=== PATIENT | female | born 1950 | race Caucasian/White ===

== ENCOUNTER 2017-01-06 11:36 | Observation (INO) | payer OTHER ==
[2017-01-06] VITALS (8 sets, daily range): BP systolic 88–176; BP diastolic 50–85; PULSE 84–91; RESP 14–20; TEMP 97.6–98.5; O2SAT 85–99
[~2017-01-06] VITALS: Ht 157.5 cm; Wt 82.0 kg
[2017-01-06] MEDS ORDERED: SODIUM CHLOR 0.9% 1000 ML INJ 1,000 ML IV SCH ×2 (12:15)
[2017-01-06 12:22] LABS: AUTOMATED NEUTROPHIL # 6.1 TH/MM3 (1.8-7.7); BASOPHIL % 0.3 % (0.0-2.0); EOSINOPHIL # 0.1 TH/MM3 (0-0.4); EOSINOPHIL % 1.5 % (0.0-4.0); HEMATOCRIT 36.9 % (35.0-46.0); LYMPH % 23.4 % (9.0-44.0); LYMPHOCYTE # 2.1 TH/MM3 (1.0-4.8); MEAN CELL VOLUME 84.3 FL (80.0-100.0); MEAN CORPUSCULAR HEMOGLOBIN 27.4 PG (27.0-34.0); MEAN CORPUSCULAR HGB CONC 32.5 % (32.0-36.0); MONO % 7.2 % (0.0-8.0); NEUT % 67.6 % (16.0-70.0); PLATELET COUNT 179 TH/MM3 (150-450); RED BLOOD COUNT 4.38 MIL/MM3 (4.00-5.30); RED CELL DISTRIBUTION WIDTH 14.9 % (11.6-17.2)
[2017-01-06 12:28] LABS: HEMO FLAGS AUTO DIFF
--- NOTE | 2017-01-06 12:29 | PD ---
HPI Chief Complaint: Syncope/Near-Syncope Time Seen by Provider: 12:26 Travel History International Travel<30 days: No Contact w/Intl Traveler<30days: No Traveled to known affect area: No History of Present Illness HPI 66-year-old female that presents to the ED via E back for evaluation of presyncope. Patient apparently had almost syncopal episode today. Per patient and ambulance report patient was at a [employer] market and she felt like she was lightheaded and about 2 faint and she was put on a chair before she fell. Patient does state that she's been having some abdominal cramping and diarrhea. Patient is somewhat of a poor historian and unclear if she is newly altered she does appear to have some underlying psychiatric illness per ambulance report. Patient is not really good historian at this time. Patient does complain of abdominal discomfort. She was found to be hypotensive by ambulance and was given fluids. She states that her pain is 4 out of 10. She states that she has no blood in her stool. Per patient she does not have diarrhea. She denies any chest pain or shortness of breath. No head injury. Denies taking any blood thinners. Again history somewhat limited. PFSH Past Medical History Anxiety: Yes (PTSD) Depression: Yes Hypertension: Yes Medical other: Yes (NEURALGIA) Thyroid Disease: Yes Influenza Vaccination: No ?: Unknown Past Surgical History Hysterectomy: Yes Other Surgery: Yes (NECK SURGERY) Social History Alcohol Use: No Tobacco Use: No Substance Use: No Allergies-Medications (Allergen,Severity, Reaction): Coded Allergies: No Known Allergies (Unverified , 01/06/17) Reported Meds & Prescriptions Reported Meds & Active Scripts Active Reported Allopurinol 300 Mg Tab 300 Mg PO DAILY Singulair (Montelukast Sodium) 10 Mg Tab 10 Mg PO DAILY Zoloft (Sertraline HCl) 100 Mg Tab 150 Mg PO DAILY Hyzaar (Losartan-Hydrochlorothiazide) 50-12.5 Mg Tab 1 Tab PO DAILY Gabapentin 300 Mg Cap 300 Mg PO BID Levothyroxine (Levothyroxine Sodium) 150 Mcg Tab 150 Mcg PO DAILY Review of Systems ROS Limitations: Altered Mental Status, Poor Historian Except as stated in HPI: all other systems reviewed are Neg Physical Exam Exam Limitations: Altered Mental Status, Poor Historian Narrative GENERAL: SKIN: Warm and dry. HEAD: Atraumatic. Normocephalic. EYES: Pupils equal and round 4 mm reactive to light and accommodation. No scleral icterus. No injection or drainage. ENT: No nasal bleeding or discharge. Mucous membranes pink and moist. Tongue is midline. No uvula deviation. NECK: Trachea midline. No JVD. CARDIOVASCULAR: Regular rate and rhythm. No murmurs, S3, S4. RESPIRATORY: No accessory muscle use. Clear to auscultation. Breath sounds equal bilaterally. GASTROINTESTINAL: Abdomen soft, non-tender, nondistended. Hepatic and splenic margins not palpable. Rectal exam done with female nurse present. Patient has no blood or hemorrhoids noted. Hemoccult was done and negative. MUSCULOSKELETAL: Extremities without clubbing, cyanosis, or edema. No obvious deformities. Full range of motion of the upper and lower extremities bilaterally. 2+ pulses bilaterally. NEUROLOGICAL: Awake and alert. No obvious cranial nerve deficits. Motor grossly within normal limits. Five out of 5 muscle strength in the arms and legs. Normal speech. PSYCHIATRIC: Appropriate mood and affect; insight and judgment normal. Data Data Last Documented VS Vital Signs Date Time Temp Pulse Resp B/P Pulse Ox O2 Delivery O2 Flow Rate FiO2 01/06/17 13:29 84 16 103/57 85 16 108/66 89 16 108/66 117/69 01/06/17 13:13 97 Room Air 01/06/17 12:33 2 01/06/17 11:52 97.6 Orders Complete Blood Count With Diff (01/06/17 11:52) Comprehensive Metabolic Panel (01/06/17 11:52) Lipase (01/06/17 11:52) Lactic Acid (01/06/17 11:52) Prothrombin Time / Inr (Pt) (01/06/17 11:52) Act Partial Throm Time (Ptt) (01/06/17 11:52) Urinalysis - C+S If Indicated (01/06/17 11:52) Ct Abd/Pel W Iv Contrast(Rout) (01/06/17 11:52) Iv Access Insert/Monitor (01/06/17 11:52) Ecg Monitoring (01/06/17 11:52) Oximetry (01/06/17 11:52) Electrocardiogram (01/06/17 11:52) Ckmb (Isoenzyme) Profile (01/06/17 11:52) Troponin I (01/06/17 11:52) Magnesium (Mg) (01/06/17 11:52) Thyroid Stimulating Hormone (01/06/17 11:52) Chest, Single Ap (01/06/17 11:52) Ct Brain W/O Iv Contrast(Rout) (01/06/17 11:52) Sodium Chlor 0.9% 1000 Ml Inj (Ns 1000 M (01/06/17 12:15) Sodium Chlor 0.9% 1000 Ml Inj (Ns 1000 M (01/06/17 12:15) Orthostatic Vital Signs (01/06/17 13:11) Iohexol 350 Inj (Omnipaque 350 Inj) (01/06/17 14:13) Blood Culture (01/06/17 14:47) Lactic Acid (01/06/17 14:48) Admit Order (Ed Use Only) (01/06/17 15:16) Place In Observation (01/06/17 ) Vital Signs (Adult) Q4H (01/06/17 15:16) Activity Oob With Assistance (01/06/17 15:16) Bedside Glucose CHAN.AC&HS (01/06/17 15:16) Causticiser / Telemetry .CONTINUOUS (01/06/17 15:16) Intake + Output CHAN.QSHIFT (01/06/17 15:16) Diet Regular Basic (01/06/17 Dinner) Sodium Chlor 0.9% 1000 Ml Inj (Ns 1000 M (01/06/17 15:16) Sodium Chloride 0.9% Flush (Ns Flush) (01/06/17 15:30) Sodium Chloride 0.9% Flush (Ns Flush) (01/06/17 21:00) Acetaminophen (Tylenol) (01/06/17 15:30) Ondansetron Inj (Zofran Inj) (01/06/17 15:30) Temazepam (Restoril) (01/06/17 15:30) Basic Metabolic Panel (Bmp) (01/07/17 06:00) Complete Blood Count With Diff (01/07/17 06:00) Resp Oxygen Rowdy C Titrat 1-4 L (01/06/17 ) Pt Request For Service (01/06/17 15:16) Case Management Consult (01/06/17 15:16) Enoxaparin Inj (Lovenox Inj) (01/06/17 16:00) Scd Bilateral/Knee High CHAN.BID (01/06/17 15:16) Vincenzo Bilateral/Knee High CHAN.QSHIFT (01/06/17 15:16) Free Thyroxine (T4) (01/06/17 15:18) Labs Laboratory Tests Test 01/06/17 01/06/17 01/06/17 01/06/17 12:01 13:12 13:17 14:31 White Blood Count 9.0 TH/MM3 Red Blood Count 4.38 MIL/MM3 Hemoglobin 12.0 GM/DL Hematocrit 36.9 % Mean Corpuscular Volume 84.3 FL Mean Corpuscular Hemoglobin 27.4 PG Mean Corpuscular Hemoglobin 32.5 % Concent Red Cell Distribution Width 14.9 % Platelet Count 179 TH/MM3 Mean Platelet Volume 8.3 FL Neutrophils (%) (Auto) 67.6 % Lymphocytes (%) (Auto) 23.4 % Monocytes (%) (Auto) 7.2 % Eosinophils (%) (Auto) 1.5 % Basophils (%) (Auto) 0.3 % Neutrophils # (Auto) 6.1 TH/MM3 Lymphocytes # (Auto) 2.1 TH/MM3 Monocytes # (Auto) 0.6 TH/MM3 Eosinophils # (Auto) 0.1 TH/MM3 Basophils # (Auto) 0.0 TH/MM3 CBC Comment AUTO DIFF Differential Total Cells 100 Counted Neutrophils % (Manual) 60 % Band Neutrophils % 2 % Lymphocytes % 26 % Monocytes % 7 % Eosinophils % 2 % Neutrophils # (Manual) 5.9 TH/MM3 Metamyelocytes 1 % Myelocytes 2 % Differential Comment FINAL DIFF MANUAL Platelet Estimate NORMAL Platelet Morphology Comment NORMAL Red Cell Morphology Comment NORMAL Sodium Level 145 MEQ/L Potassium Level 3.3 MEQ/L Chloride Level 111 MEQ/L Carbon Dioxide Level 26.8 MEQ/L Anion Gap 7 MEQ/L Blood Urea Nitrogen 25 MG/DL Creatinine 0.91 MG/DL Estimat Glomerular Filtration 62 ML/MIN Rate Random Glucose 147 MG/DL Lactic Acid Level 2.5 mmol/L 2.3 mmol/L Calcium Level 8.2 MG/DL Magnesium Level 1.8 MG/DL Total Bilirubin 0.2 MG/DL Aspartate Amino Transf 13 U/L (AST/SGOT) Alanine Aminotransferase 21 U/L (ALT/SGPT) Alkaline Phosphatase 71 U/L Total Creatine Kinase 56 U/L Troponin I LESS THAN 0.02 NG/ML Total Protein 5.9 GM/DL Albumin 3.4 GM/DL Lipase 157 U/L Free Thyroxine 0.83 NG/DL Thyroid Stimulating Hormone 5.990 uIU/ML 3rd Gen Urine Color YELLOW Urine Turbidity HAZY Urine pH 5.5 Urine Specific [place] 1.024 Urine Protein 30 mg/dL Urine Glucose (UA) NEG mg/dL Urine Ketones NEG mg/dL Urine Occult Blood NEG Urine Nitrite NEG Urine Bilirubin NEG Urine Urobilinogen 2.0 MG/DL Urine Leukocyte Esterase NEG Urine RBC 1 /hpf Urine WBC 2 /hpf Urine Squamous Epithelial 11 /hpf Cells Urine Hyaline Casts 50 /lpf Urine Mucus FEW /lpf Microscopic Urinalysis Comment CULT NOT INDICATED Prothrombin Time 10.6 SEC Prothromb Time International 1.0 RATIO Ratio Activated Partial 19.9 SEC Thromboplast Time MDM Medical Decision Making Medical Screen Exam Complete: Yes Emergency Medical Condition: Yes Medical Record Reviewed: Yes Interpretation(s) EKG shows sinus rhythm with no sign of acute ischemia or arrhythmia read by me and attending. CBC & BMP Diagram 01/06/17 12:01 LFTS and lipase WNL Last Impressions Head CT 01/06/17 1152 Signed Impressions: Service Date/Time: Friday, January 06, 2017 13:50 - CONCLUSION: Unremarkable study except for left sphenoid sinusitis. Yaneth Gonzalez MD Chest X-Ray 01/06/17 1152 Signed Impressions: Service Date/Time: Friday, January 06, 2017 11:53 - CONCLUSION: There is prominence of the perivascular markings with crowding of the bronchovascular markings may be due to expiratory state of this radiograph, however slight interstitial process is not excluded. Yaneth Gonzalez MD CT abdomen showed diverticulum but no other disease EKG shows sinus rhythm with no sign of acute ischemia or arrhythmia read by me and attending. Troponin and CK-MB negative. Differential Diagnosis Hypotension versus orthostatic hypotension versus altered mental status versus diarrhea versus acute abdomen versus syncope versus presyncope Narrative Course 66-year-old female that presents to the ED for evaluation of possible syncopal episode. Patient was properly examined and was found to have signs and symptoms consistent with appears to be possible syncope and altered mental status. This time a recommendation is for labs and imaging. Cardiac workup done as well. Patient was given IV fluids here. Labs and imaging showed some fluid in the lungs but otherwise unremarkable. Patient did have orthostatics and she still was Symptomatic with lightheadedness and presyncopal symptoms but no drop in BP. At this time my attending Dr. Odom evaluated the patient with me and agrees with admission for altered mental status, syncope, hypotension. EMILIANO barker and Dr Barnes agrees to admission. Diagnosis Primary Impression: Altered mental status Qualified Code: R41.82 - Altered mental status, unspecified altered mental status type Additional Impressions: Hypotension Qualified Code: I95.9 - Hypotension, unspecified hypotension type Postural dizziness with presyncope Admitting Information Admitting Physician Requests: Prieto Dela Cruz Jan 06, 2017 12:29
[2017-01-06] MEDS ORDERED: ALLO300T2 PO (12:32)
[2017-01-06] MEDS ORDERED: HYZA50TA2 PO (12:32)
[2017-01-06] MEDS ORDERED: MONT10TA2 PO (12:32)
[2017-01-06] MEDS ORDERED: LEVO150T7 PO (12:32)
[2017-01-06] MEDS ORDERED: ZOLO100T PO (12:32)
[2017-01-06] MEDS ORDERED: GABA300C5 PO (12:32)
--- NOTE | 2017-01-06 12:44 | RADRPT ---
EXAM DATE/TIME: 01/06/2017 11:53 [facility] COMPARISON: No previous studies available for comparison. INDICATIONS : Syncope. MEDICAL HISTORY : Chronic obstructive pulmonary disease. Asthma SURGICAL HISTORY : None. ENCOUNTER: Initial ACUITY: 1 day PAIN SCORE: 0/10 LOCATION: Bilateral chest FINDINGS: There is prominence of the perivascular markings with crowding of the bronchovascular markings may be due to expiratory state of this radiograph, however slight interstitial process is not excluded. Foc al consolidation is not seen. Prominence of the mediastinal shadow may be technical. CONCLUSION: There is prominence of the perivascular markings with crowding of the bronchovascular markings may be due to expiratory state of this radiograph, however slight interstitial process is not excluded. Yaneth Gonzalez MD on January 06, 2017 at 12:42 Board Certified Radiologist. This report was verified electronically.
[2017-01-06 12:49] LABS: ALT (GPT) 21 U/L (10-53); ANION GAP 7 MEQ/L (5-15); AST (GOT) 13 U/L (15-37); BICARBONATE 26.8 MEQ/L (21.0-32.0); BLOOD UREA NITROGEN 25 MG/DL (7-18); CHLORIDE 111 MEQ/L (98-107); GLOMERULAR FILTRATION RATE 62 ML/MIN (>89); MAGNESIUM 1.8 MG/DL (1.5-2.5); POTASSIUM 3.3 MEQ/L (3.5-5.1); SODIUM (NA) 145 MEQ/L (136-145)
[2017-01-06 12:58] LABS: ALKALINE PHOSPHATASE 71 U/L (45-117); TOTAL BILIRUBIN ADULT 0.2 MG/DL (0.2-1.0)
[2017-01-06 13:06] LABS: BANDS 2 % (0-6); EOSINOPHILS 2 % (0-4); METAMYELOCYTES 1 % (0-1); MYELOCYTES 2 % (0-0); NEUTROPHIL # MANUAL DIFF 5.9 TH/MM3 (1.8-7.7); PLATELET ESTIMATE SMEAR NORMAL (NORMAL); PLATELET MORPHOLOGY NORMAL (NORMAL); POLYS (SEG NEUTROPHILS) 60 % (16-70); SCAN/DIFF FINAL DIFF MANUAL; WBC DIFF SAMPLE 100
[2017-01-06 13:15] LABS: CREATINE KINASE 56 U/L (26-192)
[2017-01-06 13:38] LABS: BLOOD, URINE NEG (NEG); COMMENT (UR) CULT NOT INDICATED; CULTURE IF INDICATED CULT NOT INDICATED; GLUCOSE,URINE NEG (NEG); HYALINE CAST, URINE 50 /lpf (RARE); KETONE, URINE NEG (NEG); MUCUS URINE FEW /lpf (OCC); NITRITE,URINE NEG (NEG); PH, URINE 5.5 (5.0-8.5); SQUAMOUS EPITHELIAL CELL URINE 11 /hpf (0-5); URINE COLOR YELLOW (YELLW/STRAW)
[2017-01-06 13:49] LABS: APTT (PATIENT) 19.9 SEC (24.3-30.1); PROTHROMBIN TIME - PATIENT 10.6 SEC (9.8-11.6)
[2017-01-06] MEDS ORDERED: IOHEXOL 350 MG/ML 10 ML VIAL (for RAD DIAG) IV ONE (14:13)
--- NOTE | 2017-01-06 14:13 | RADRPT ---
EXAM DATE/TIME: 01/06/2017 13:50 [facility] COMPARISON: No previous studies available for comparison. INDICATIONS : Syncope RADIATION DOSE: 56.35 CTDIvol (mGy) MEDICAL HISTORY : Hypertension. SURGICAL HISTORY : Hysterectomy. ENCOUNTER: Initial ACUITY: 1 day PAIN SCALE: 4/10 LOCATION: cranial TECHNIQUE: Multiple contiguous axial images were obtained of the head. Using automated exposure control and adj ustment of the mA and/or kV according to patient size, radiation dose was kept as low as reasonably a chievable to obtain optimal diagnostic quality images. FINDINGS: There is no evidence for intracranial hemorrhage, mass effect, mass lesions, edema, or extra-axial fl uid collections. The visualized bony structures appear intact. The ventricles are normal size for t he patient's age. There are no signs of acute infarction for technique. There is complete opacificat ion of the left sphenoid sinus. CONCLUSION: Unremarkable study except for left sphenoid sinusitis. Yaneth Gonzalez MD on January 06, 2017 at 14:10 Board Certified Radiologist. This report was verified electronically.
--- NOTE | 2017-01-06 14:34 | RADRPT ---
EXAM DATE/TIME: 01/06/2017 13:47 [facility] COMPARISON: No previous studies available for comparison. INDICATIONS : Abdominal pain along with diarrhea. IV CONTRAST: 75 cc Omnipaque 350 (iohexol) IV ORAL CONTRAST: No oral contrast ingested. RADIATION DOSE: 11.29 CTDIvol (mGy) MEDICAL HISTORY : Hypertension. SURGICAL HISTORY : Hysterectomy. ENCOUNTER: Initial ACUITY: 1 day PAIN SCALE: 3/10 LOCATION: Abdomen TECHNIQUE: Volumetric scanning of the abdomen and pelvis was performed. Using automated exposure control and adjustment of the mA and/or kV according to patient size, radiation dose was kept as low as reasonably achievable to obtain optimal diagnostic quality images. FINDINGS: CT Abdomen: The liver, spleen, pancreas, kidneys, adrenals are unremarkable. There is no evidence for any appreciable pathological adenopathy, free fluid, or bowel obstruction. Coronary artery calcific ations are seen typically seen with CAD and need to be evaluated clinically. Chronic vascular calcifi cations are present involving the aorta, iliac arteries without any significant stenosis or aneurysma l dilatations for technique. There is an approximate 5 cm duodenal diverticulum coming off the third portion of the duodenum. CT pelvis: There is no evidence for mass, abscess formation, or any significant adenopathy within the pelvis. There are scattered diverticuli mainly in the sigmoid colon without definite signs of divert iculitis, however there is some degree of spasm involving the sigmoid colon. Slight degree of somewha t linear irregular opacity is seen in bilateral lung bases mostly consistent with scarring. CONCLUSION: Duodenal diverticulum and colonic diverticuli. Yaneth Gonzalez MD on January 06, 2017 at 14:27 Board Certified Radiologist. This report was verified electronically.
[2017-01-06] MEDS ORDERED: SODIUM CHLORIDE 0.9% FLUSH 10 ML FLUSH IV FLUSH PRN (15:30)
[2017-01-06] MEDS ORDERED: TEMAZEPAM 15 MG CAP PO PRN (15:30)
[2017-01-06] MEDS ORDERED: POTASSIUM BICARBONATE 25 MEQ EFFERVESCENT TAB PO ONE (15:30)
[2017-01-06] MEDS ORDERED: ONDANSETRON HCL 4 MG/2 ML VIAL IVP PRN (15:30)
[2017-01-06] MEDS: SODIUM CHLOR 0.9% 1000 ML INJ 1,000 ML IV SCH (15:44)
[2017-01-06] MEDS ORDERED: ENOXAPARIN SODIUM 40 MG/0.4 ML SYRINGE SQ SCH (16:00)
--- NOTE | 2017-01-06 16:25 | HHI.HP ---
[facility] Fletcher Chun MD Admission Diagnosis dehydration, altered mental status, hypotension Diagnoses: Travel History International Travel<30 Days: No Contact w/Intl Traveler <30 Da: No Traveled to Known Affected Are: No History of Present Illness 66-year-old female that presents to the ED via EV[facility] for evaluation of presyncope. Patient apparently had almost syncopal episode today. Per patient and ambulance report patient was at a flea market and she felt like she was lightheaded and about 2 faint and she was put on a chair before she fell. Patient does state that she's been having some abdominal cramping and diarrhea. Patient is somewhat of a poor historian and unclear if she is newly altered she does appear to have some underlying psychiatric illness per ambulance report. Patient is not really good historian at this time. Patient does complain of abdominal discomfort. She was found to be hypotensive by ambulance and was given fluids. She states that her pain is 4 out of 10. She states that she has no blood in her stool. Per patient she does not have diarrhea. She denies any chest pain or shortness of breath. No head injury. Denies taking any blood thinners. Again history somewhat limited. Patient received IVF total of 3L . She is at baseline at my time of recommendations. Family at bedside says she is back at her normal mentation. Patient says she never had a similar episode. Says doesn't have a h/o seizure, and says had recent check up with her PCP including carotid US was normal and also she has ECHO 2 years ago and was normal. Says she would like to follow up with her PCP. Will admit in obs for IV hydration and monitoring VS and labs . Patient is requesting a sleeping aid at night. She is alert and oriented x4. Review of Systems Except as stated in HPI: all other systems reviewed are Neg Past Family Social History Past Medical History PTSD Neuralgia Hypertension Gout Hypothyroidism Past Surgical History Neck surgery x2 ~10 years ago Hysterectomy Right toe surgery Reported Medications Last Impressions Head CT 01/06/17 1152 Signed Impressions: Service Date/Time: Friday, January 06, 2017 13:50 - CONCLUSION: Unremarkable study except for left sphenoid sinusitis. Yaneth Gonzalez MD Chest X-Ray 01/06/17 1152 Signed Impressions: Service Date/Time: Friday, January 06, 2017 11:53 - CONCLUSION: There is prominence of the perivascular markings with crowding of the bronchovascular markings may be due to expiratory state of this radiograph, however slight interstitial process is not excluded. Yaneth Gonzalez MD Abdomen/Pelvis CT 01/06/17 1152 Signed Impressions: Service Date/Time: Friday, January 06, 2017 13:47 - CONCLUSION: Duodenal diverticulum and colonic diverticuli. Yaneth Gonzalez MD Allergies: Coded Allergies: No Known Allergies (Unverified , 01/06/17) Family History Arthritis No h/o [place], stroke, seizures. Patient says her family is healthy Social History Denies alcohol use, illicit drug use or tobacco use Physical Exam Vital Signs Vital Signs Date Time Temp Pulse Resp B/P Pulse Ox O2 Delivery O2 Flow Rate FiO2 01/06/17 15:44 85 16 168/85 96 Room Air 01/06/17 13:29 84 16 103/57 85 16 108/66 89 16 108/66 117/69 01/06/17 13:13 84 16 103/57 97 Room Air 01/06/17 12:33 89 16 98/55 99 Nasal Cannula 2 01/06/17 12:03 90 14 88/50 96 Room Air 01/06/17 11:52 97.6 90 14 88/50 88 Physical Exam GENERAL: This is a well-nourished, well-developed patient, in no apparent distress. SKIN: No rashes, ecchymoses or lesions. Cool and dry. HEAD: Atraumatic. Normocephalic. No temporal or scalp tenderness. EYES: Pupils equal round and reactive. Extraocular motions intact. No scleral icterus. No injection or drainage. ENT: Nose without bleeding, purulent drainage or septal hematoma. Throat without erythema, tonsillar hypertrophy or exudate. Uvula midline. Airway patent. NECK: Trachea midline. No JVD or lymphadenopathy. Supple, nontender, no meningeal signs. CARDIOVASCULAR: Regular rate and rhythm without murmurs, gallops, or rubs. RESPIRATORY: Clear to auscultation. Breath sounds equal bilaterally. No wheezes , rales, or rhonchi. GASTROINTESTINAL: Abdomen soft, non-tender, nondistended. No hepato-splenomegaly , or palpable masses. No guarding. MUSCULOSKELETAL: Extremities without clubbing, cyanosis, or edema. No joint tenderness, effusion, or edema noted. No calf tenderness. Negative Homans sign bilaterally. NEUROLOGICAL: Awake and alert. Cranial nerves II through XII intact. Motor and sensory grossly within normal limits. Five out of 5 muscle strength in all muscle groups. Normal speech. Laboratory Laboratory Tests Test 01/06/17 01/06/17 01/06/17 01/06/17 12:01 13:12 13:17 14:31 White Blood Count 9.0 Red Blood Count 4.38 Hemoglobin 12.0 Hematocrit 36.9 Mean Corpuscular Volume 84.3 Mean Corpuscular Hemoglobin 27.4 Mean Corpuscular Hemoglobin 32.5 Concent Red Cell Distribution Width 14.9 Platelet Count 179 Mean Platelet Volume 8.3 Neutrophils (%) (Auto) 67.6 Lymphocytes (%) (Auto) 23.4 Monocytes (%) (Auto) 7.2 Eosinophils (%) (Auto) 1.5 Basophils (%) (Auto) 0.3 Neutrophils # (Auto) 6.1 Lymphocytes # (Auto) 2.1 Monocytes # (Auto) 0.6 Eosinophils # (Auto) 0.1 Basophils # (Auto) 0.0 CBC Comment AUTO DIFF Differential Total Cells 100 Counted Neutrophils % (Manual) 60 Band Neutrophils % 2 Lymphocytes % 26 Monocytes % 7 Eosinophils % 2 Neutrophils # (Manual) 5.9 Metamyelocytes 1 Myelocytes 2 Differential Comment FINAL DIFF MANUAL Platelet Estimate NORMAL Platelet Morphology Comment NORMAL Red Cell Morphology Comment NORMAL Sodium Level 145 Potassium Level 3.3 Chloride Level 111 Carbon Dioxide Level 26.8 Anion Gap 7 Blood Urea Nitrogen 25 Creatinine 0.91 Estimat Glomerular Filtration 62 Rate Random Glucose 147 Lactic Acid Level 2.5 2.3 Calcium Level 8.2 Magnesium Level 1.8 Total Bilirubin 0.2 Aspartate Amino Transf 13 (AST/SGOT) Alanine Aminotransferase 21 (ALT/SGPT) Alkaline Phosphatase 71 Total Creatine Kinase 56 Troponin I LESS THAN 0.02 Total Protein 5.9 Albumin 3.4 Lipase 157 Thyroid Stimulating Hormone 5.990 3rd Gen Urine Color YELLOW Urine Turbidity HAZY Urine pH 5.5 Urine Specific [place] 1.024 Urine Protein 30 Urine Glucose (UA) NEG Urine Ketones NEG Urine Occult Blood NEG Urine Nitrite NEG Urine Bilirubin NEG Urine Urobilinogen 2.0 Urine Leukocyte Esterase NEG Urine RBC 1 Urine WBC 2 Urine Squamous Epithelial 11 Cells Urine Hyaline Casts 50 Urine Mucus FEW Microscopic Urinalysis Comment CULT NOT INDICATED Prothrombin Time 10.6 Prothromb Time International 1.0 Ratio Activated Partial 19.9 Thromboplast Time Date/Time Procedure Status Source Growth 01/06/17 15:15 Aerobic Blood Culture Received Blood Peripheral Pending 01/06/17 15:15 Anaerobic Blood Culture Received Blood Peripheral Pending Result Diagram: 01/06/17 1201 01/06/17 1201 Imaging Last Impressions Head CT 01/06/17 1152 Signed Impressions: Service Date/Time: Friday, January 06, 2017 13:50 - CONCLUSION: Unremarkable study except for left sphenoid sinusitis. Yaneth Gonzalez MD Chest X-Ray 01/06/17 1152 Signed Impressions: Service Date/Time: Friday, January 06, 2017 11:53 - CONCLUSION: There is prominence of the perivascular markings with crowding of the bronchovascular markings may be due to expiratory state of this radiograph, however slight interstitial process is not excluded. Yaneth Gonzalez MD Abdomen/Pelvis CT 01/06/17 1152 Signed Impressions: Service Date/Time: Friday, January 06, 2017 13:47 - CONCLUSION: Duodenal diverticulum and colonic diverticuli. Yaneth Gonzalez MD Assessment and Plan Assessment and Plan 66-year-old female that presents for evaluation of possible syncopal episode. Presyncope Acute encephalopathy secondary to low pressure, dehydration Dehydration due to decreased by mouth intake today Low blood pressure secondary to antihypertensives and low by mouth intake Hypokalemia secondary to decreased by mouth intake. Replaced. Monitor and replace as needed. EKG shows sinus rhythm with no sign of acute ischemia or arrhythmia read by me and attending. Troponin and CK-MB negative. CT abdomen showed diverticulum but no other disease CT head normal Received total of 2 L of normal saline bolus Continue aggressive hydration IV and by mouth Monitor vital signs closely We'll check again BMP tonight Hold patient's lab pressure medications Hypothyroidism TSH is 5.9. Continue patient medications levothyroxine, follow- up as outpatient. Chronic medical problems gout, asthma, depression appears at baseline, restart home meds Discussed Condition With Patient, nurse, Prieto HERNANDES in ED Anna Barnes MD Jan 06, 2017 16:25
[2017-01-06] MEDS ORDERED: TEMAZEPAM 7.5 MG CAP PO PRN (17:30)
[2017-01-06] MEDS: SODIUM CHLORIDE 0.9% FLUSH 10 ML FLUSH IV FLUSH SCH (20:03)
[2017-01-06 20:32] LABS: BICARBONATE 29.4 MEQ/L (21.0-32.0); POTASSIUM 4.3 MEQ/L (3.5-5.1)
[2017-01-07] VITALS: O2SAT 96
[2017-01-07 00:18] VITALS: BP 186/86; PULSE 106; RESP 20; TEMP 99.2; O2SAT 97
[2017-01-07] MEDS: ACETAMINOPHEN 325 MG TAB PO PRN ×2 (00:33→08:50)
[2017-01-07] MEDS: SODIUM CHLOR 0.9% 1000 ML INJ 1,000 ML IV SCH ×2 (01:16→11:16)
[2017-01-07 04:23] VITALS: BP 134/66; PULSE 86; RESP 20; TEMP 98.6; O2SAT 96
[2017-01-07 06:39] LABS: BASOPHIL % 0.2 % (0.0-2.0); EOSINOPHIL # 0.2 TH/MM3 (0-0.4); EOSINOPHIL % 1.3 % (0.0-4.0); HEMATOCRIT 34.7 % (35.0-46.0); HEMO FLAGS DIFF FINAL; LYMPH % 16.2 % (9.0-44.0); MEAN CELL VOLUME 82.8 FL (80.0-100.0); MEAN CORPUSCULAR HEMOGLOBIN 27.9 PG (27.0-34.0); MEAN CORPUSCULAR HGB CONC 33.7 % (32.0-36.0); MONO % 8.1 % (0.0-8.0); NEUT % 74.2 % (16.0-70.0); PLATELET COUNT 184 TH/MM3 (150-450); RED BLOOD COUNT 4.18 MIL/MM3 (4.00-5.30); RED CELL DISTRIBUTION WIDTH 14.7 % (11.6-17.2); WHITE BLOOD COUNT 12.1 TH/MM3 (4.0-11.0)
[2017-01-07 07:19] LABS: BICARBONATE 28.8 MEQ/L (21.0-32.0); POTASSIUM 3.8 MEQ/L (3.5-5.1)
[2017-01-07 08:00] VITALS: BP 143/79; PULSE 82; RESP 18; TEMP 97.7; O2SAT 97
[2017-01-07] MEDS: SODIUM CHLORIDE 0.9% FLUSH 10 ML FLUSH IV FLUSH SCH (08:50)
[2017-01-07 12:00] VITALS: BP 151/64; PULSE 82; RESP 20; TEMP 97.5; O2SAT 96
--- NOTE | 2017-01-07 13:32 | EKG ---
Date Performed: 01/06/2017 Time Performed: 12:19:23 PTAGE: 66 years EKG: Sinus rhythm LOW QRS VOLTAGE IN PRECORDIAL LEADS Diffuse nonspecific T wave changes BORDERLINE ECG NO PREVIOUS TRACING DOCTOR: Marv Menendez Interpretating Date/Time 01/07/2017 13:31:05
[2017-01-07] MEDS ORDERED: LOSA50TA PO (13:40)
--- NOTE | 2017-01-07 13:40 | HHI.DCPOC ---
Discharge Care Plan Goals to Promote Your Health * To prevent worsening of your condition and complications * To maintain your health at the optimal level Directions to Meet Your Goals Take your medications as prescribed Follow your dietary instruction Follow activity as directed Keep your appointments as scheduled Take your immunizations and boosters as scheduled If your symptoms worsen call your PCP, if no PCP go to Urgent Care Center or Emergency Room Smoking is Dangerous to Your Health. Avoid second hand smoke Call the 24-hour hour crisis hotline for domestic abuse at Anna Barnes MD Jan 07, 2017 13:40
--- NOTE | 2017-01-07 13:45 | HHI.DS ---
Discharge Summary Admission Date Jan 06, 2017 at 15:18 Discharge Date: Jan 07, 2017 Admitting Diagnosis dehydration, altered mental status, hypotension (1) Altered mental status ICD Code: R41.82 Diagnosis: Principal (2) Hypotension ICD Code: I95.9 Diagnosis: Principal (3) Postural dizziness with presyncope ICD Code: R42 Diagnosis: Principal Procedures none Brief History - From Admission 66-year-old female that presents to the ED via [facility] for evaluation of presyncope. Patient apparently had almost syncopal episode today. Per patient and ambulance report patient was [place] [employer] and she felt like she was lightheaded and about 2 faint and she was put on a chair before she fell. Patient does state that she's been having some abdominal cramping and diarrhea. Patient is somewhat of a poor historian and unclear if she is newly altered she does appear to have some underlying psychiatric illness per ambulance report. Patient is not really good historian at this time. Patient does complain of abdominal discomfort. She was found to be hypotensive by ambulance and was given fluids. She states that her pain is 4 out of 10. She states that she has no blood in her stool. Per patient she does not have diarrhea. She denies any chest pain or shortness of breath. No head injury. Denies taking any blood thinners. Again history somewhat limited. Patient received IVF total of 3L . She is at baseline at my time of recommendations. Family at bedside says she is back at her normal mentation. Patient says she never had a similar episode. Says doesn't have a h/o seizure, and says had recent check up with her PCP including carotid US was normal and also she has ECHO 2 years ago and was normal. Says she would like to follow up with her PCP. Will admit in obs for IV hydration and monitoring VS and labs . Patient is requesting a sleeping aid at night. She is alert and oriented x4. CBC/BMP: 01/07/17 0540 01/07/17 0540 Significant Findings Laboratory Tests Test 01/06/17 01/06/17 01/06/17 01/06/17 12:01 13:12 13:17 14:31 Myelocytes 2 % (0-0) Potassium Level 3.3 MEQ/L (3.5-5.1) Chloride Level 111 MEQ/L (98-107) Blood Urea Nitrogen 25 MG/DL (7-18) Estimat Glomerular Filtration 62 ML/MIN (>89) Rate Random Glucose 147 MG/DL (74-106) Lactic Acid Level 2.5 mmol/L 2.3 mmol/L (0.4-2.0) (0.4-2.0) Calcium Level 8.2 MG/DL (8.5-10.1) Aspartate Amino Transf 13 U/L (15-37) (AST/SGOT) Troponin I LESS THAN 0.02 NG/ML (0.02-0.05) Total Protein 5.9 GM/DL (6.4-8.2) Thyroid Stimulating Hormone 5.990 uIU/ML 3rd Gen (0.358-3.740) Urine Turbidity HAZY (CLEAR) Urine Protein 30 mg/dL (NEG-TRACE) Urine Mucus FEW /lpf (OCC) Activated Partial 19.9 SEC Thromboplast Time (24.3-30.1) Test 01/06/17 01/07/17 19:53 05:40 Chloride Level 108 MEQ/L (98-107) Blood Urea Nitrogen 19 MG/DL (7-18) Estimat Glomerular Filtration 64 ML/MIN (>89) Rate Random Glucose 161 MG/DL (74-106) Calcium Level 7.8 MG/DL (8.5-10.1) White Blood Count 12.1 TH/MM3 (4.0-11.0) Hematocrit 34.7 % (35.0-46.0) Neutrophils (%) (Auto) 74.2 % (16.0-70.0) Monocytes (%) (Auto) 8.1 % (0.0-8.0) Neutrophils # (Auto) 9.0 TH/MM3 (1.8-7.7) Monocytes # (Auto) 1.0 TH/MM3 (0-0.9) Imaging Last Impressions Head CT 01/06/17 1152 Signed Impressions: Service Date/Time: Friday, January 06, 2017 13:50 - CONCLUSION: Unremarkable study except for left sphenoid sinusitis. Yaneth Gonzalez MD Chest X-Ray 01/06/17 1152 Signed Impressions: Service Date/Time: Friday, January 06, 2017 11:53 - CONCLUSION: There is prominence of the perivascular markings with crowding of the bronchovascular markings may be due to expiratory state of this radiograph, however slight interstitial process is not excluded. Yaneth Gonzalez MD Abdomen/Pelvis CT 01/06/17 1152 Signed Impressions: Service Date/Time: Friday, January 06, 2017 13:47 - CONCLUSION: Duodenal diverticulum and colonic diverticuli. Yaneth Gonzalez MD PE at Discharge GENERAL: This is a well-nourished, well-developed patient, in no apparent distress. SKIN: No rashes, ecchymoses or lesions. Cool and dry. HEAD: Atraumatic. Normocephalic. No temporal or scalp tenderness. EYES: Pupils equal round and reactive. Extraocular motions intact. No scleral icterus. No injection or drainage. ENT: Nose without bleeding, purulent drainage or septal hematoma. Throat without erythema, tonsillar hypertrophy or exudate. Uvula midline. Airway patent. NECK: Trachea midline. No JVD or lymphadenopathy. Supple, nontender, no meningeal signs. CARDIOVASCULAR: Regular rate and rhythm without murmurs, gallops, or rubs. RESPIRATORY: Clear to auscultation. Breath sounds equal bilaterally. No wheezes , rales, or rhonchi. GASTROINTESTINAL: Abdomen soft, non-tender, nondistended. No hepato-splenomegaly , or palpable masses. No guarding. MUSCULOSKELETAL: Extremities without clubbing, cyanosis, or edema. No joint tenderness, effusion, or edema noted. No calf tenderness. Negative Homans sign bilaterally. NEUROLOGICAL: Awake and alert. Cranial nerves II through XII intact. Motor and sensory grossly within normal limits. Five out of 5 muscle strength in all muscle groups. Normal speech. Pt update on day of discharge In the chair she is eating. Tolerates diet well. Able to ambulated no lightheadedness. No n/v/d/c. No abd pain . She has adequate urinary OP. Had a BM ,normal. No cp, sob, palpitations. Feels better and wants to go home. Hospital Course 66-year-old female that presents for evaluation of possible syncopal episode. Presyncope Acute encephalopathy secondary to low pressure, dehydration Dehydration due to decreased by mouth intake today Low blood pressure secondary to antihypertensives and low by mouth intake Hypokalemia secondary to decreased by mouth intake. Replaced. Monitor and replace as needed. EKG shows sinus rhythm with no sign of acute ischemia or arrhythmia read by me and attending. Troponin and CK-MB negative. CT abdomen showed diverticulum but no other disease CT head normal Received total of 2 L of normal saline bolus Continue aggressive hydration IV and by mouth Monitor vital signs closely We'll check again BMP tonight Hold patient's lab pressure medications. Can restart losartan as OP and DC HCTZ discussed with the patient and family at bedside. Patient to follwo up as oP [facility] PCP , monitor BP and adjust meds as need. Hypothyroidism TSH is 5.9. Continue patient medications levothyroxine, follow- up as outpatient. Chronic medical problems gout, asthma, depression appears at baseline, restart home meds Discussed Condition With Patient, nurse, family at bedside Patient improved significantly. DC home in stable condition to follow up as OP with PCP and consultants. Pt Condition on Discharge: Stable Discharge Disposition: Discharge Home Discharge Time: > 30 minutes Discharge Instructions DIET: Follow Instructions for: Heart Healthy Diet, Diabetic Diet Activities you can perform: Regular-No Restrictions Follow up Referrals: PCP Follow-up - 3-5 Days New Medications: Losartan (Losartan) 50 Mg Tab 50 MG PO DAILY Blood Pressure Management #30 Ref 0 TAB Continued Medications: Allopurinol (Allopurinol) 300 Mg Tab 300 MG PO DAILY Gout #30 Ref 0 TAB Gabapentin (Gabapentin) 300 Mg Cap 300 MG PO BID #60 Ref 0 CAP Levothyroxine (Levothyroxine) 150 Mcg Tab 150 MCG PO DAILY Thyroid #30 Ref 0 TAB Montelukast (Singulair) 10 Mg Tab 10 MG PO DAILY #30 Ref 0 TAB Sertraline (Zoloft) 100 Mg Tab 150 MG PO DAILY #30 Ref 0 TAB Discontinued Medications: Losartan-Hydrochlorothiazide (Hyzaar) 50-12.5 Mg Tab 1 TAB PO DAILY Blood Pressure Management #30 Ref 0 TAB Anna Barnes MD Jan 07, 2017 13:45
== END 2017-01-07 15:07 | disposition home or self-care (01) ==
LOC: NEPE 11:36 → NEDA 15:18 → NEPFCDU 18:11
PROVIDERS: ADMIT Hospitalist; ATTEND Hospitalist
DX: R41.82 Altered mental status, unspecified (principal); I95.9 Hypotension, unspecified; G93.40 Encephalopathy, unspecified; R42 Dizziness and giddiness; E86.0 Dehydration; E87.6 Hypokalemia; E03.9 Hypothyroidism, unspecified; I10 Essential (primary) hypertension; J32.3 Chronic sphenoidal sinusitis; F43.10 Post-traumatic stress disorder, unspecified; F32.9 Major depressive disorder, single episode, unspecified; J45.909 Unspecified asthma, uncomplicated; M10.9 Gout, unspecified
CPT/HCPCS: 70450; 71010; 74177; 80048; 80053; 81001; 82550; 82948; 83605; 83690; 83735; 84439; 84443; 84484; 85007; 85025; 85027; 85610; 85730; 87040; 93005; 96360; 97161; 99285; G0378; G8987; G8988; J1650; J7030; Q9967

== ENCOUNTER → 2018-01-12 | Outpatient (CLI) | payer OTHER ==
[~2018-01-12] MED LIST: ADVA500A INH; ALBUAER3 INH; ALLO300T2 PO; ATOR20TA15 PO; CYCL10TA PO; GABA300C5 PO; LEVO150T7 PO; LOSA50TA PO; LOSA50TA2 PO; MELO15TA20 PO; METO25TA3 PO; MONT10TA2 PO; ZOLO100T PO
== END ==
LOC: CPRE 09:24
PROVIDERS: ATTEND Orthopaedic Surgery Sports Medicine
DX: M17.12 Unilateral primary osteoarthritis, left knee (principal)

== ENCOUNTER 2018-01-29 05:50 | Inpatient (IN) | payer OTHER, MEDICARE ==
[~2018-01-29] VITALS: Ht 157.5 cm; Wt 86.1 kg
[~2018-01-29 05:50] MED LIST changes: -LOSA50TA PO
[2018-01-29] MEDS ORDERED: BUPIVACAINE PF 0.75% DEX-WATER INJ 2 ML AMP ONE (06:00)
[2018-01-29] MEDS ORDERED: ACETAMINOPHEN 1000 MG/100 ML 0 ML IV ONE ×2 (06:00→07:10)
[2018-01-29] MEDS ORDERED: PROPOFOL 500 MG/50 ML INJ 50 ML ONE ×2 (06:01→07:28)
[2018-01-29] MEDS ORDERED: ceFAZolin 1,000 MG/NS 100 ML IV SCH ×2 (06:30)
[2018-01-29] MEDS ORDERED: LACTATED RINGER'S 1000 ML IV PRN (06:30)
[2018-01-29] MEDS ORDERED: CHLORHEXIDINE GLUCONATE 2 % 1 PACK (2 CLOTHS) TOPICAL PRN (06:30)
[2018-01-29] MEDS ORDERED: DEXAMETHASONE SOD PHOS 20 MG/5 ML VIAL IV PUSH ONE (06:30)
[2018-01-29] MEDS ORDERED: SODIUM CHLORID 0.9% 500 ML IV PRN (06:30)
[2018-01-29] MEDS ORDERED: METOPROLOL TARTRATE 25 MG TAB PO PRN (06:30)
[2018-01-29] MEDS ORDERED: CHLORHEXIDINE GLUCONATE 4% SOLN 120 ML BTL TOPICAL SCH (06:30)
[2018-01-29] MEDS ORDERED: POVIDONE IODINE 7.5% SCRUB 118 ML BOTTLE TOPICAL SCH (06:30)
[2018-01-29] MEDS ORDERED: POVIDONE IODINE 5% (ANTISEPSIS KIT) 4 APPLICATIONS EACH NARE PRN (06:30)
[2018-01-29] MEDS ORDERED: INSULIN HUMAN REGULAR 1,000 UNITS/10 ML VIAL SQ PRN (06:30)
[2018-01-29] MEDS ORDERED: ZOLPIDEM TARTRATE 5 MG TAB PO PRN (06:45)
[2018-01-29] MEDS ORDERED: MORPHINE SULFATE 4 MG/ML INJ IV PUSH PRN (06:45)
[2018-01-29] MEDS ORDERED: Post-op Orders (for Pharmacy) XX ONE (06:45)
[2018-01-29] MEDS ORDERED: diphenhydrAMINE HCL 50 MG/ML VIAL IV PUSH PRN (06:45)
[2018-01-29] MEDS ORDERED: ONDANSETRON ODT 4 MG TAB PO PRN (06:45)
[2018-01-29] MEDS ORDERED: HYDR-3288 PO (06:47)
[2018-01-29] MEDS ORDERED: ASPI81CH6 CHEW (06:47)
[2018-01-29] MEDS ORDERED: FAT EMULSION 20% INJ 0 ML ONE (06:55)
[2018-01-29] MEDS ORDERED: ceFAZolin 2 GM PREMIX 50 ML ONE (07:04)
[2018-01-29] MEDS ORDERED: VANCOMYCIN 1 GM/200 ML INJ 200 ML IV ONE (07:05)
[2018-01-29] MEDS ORDERED: GENTAMICIN SULFATE 80 MG/2 ML VIAL ONE (07:07)
[2018-01-29] MEDS ORDERED: SUGAMMADEX SODIUM 200 MG/2 ML VIAL IV PUSH ONE (07:11)
[2018-01-29 07:14] VITALS: PULSE 77
[2018-01-29] MEDS ORDERED: MIDAZOLAM HCL 5 MG/5 ML VIAL ONE (07:56)
[2018-01-29] MEDS ORDERED: BUPIVACAINE HCL PF 0.25% 30 ML VIAL ONE (07:56)
[2018-01-29] MEDS ORDERED: BUPIVACAINE LIPOSOME PF 1.3% 20 ML VIAL ONE (07:56)
[2018-01-29] MEDS ORDERED: SODIUM CHLORIDE 0.9% INJ 10 ML ONE (07:57)
[2018-01-29] MEDS ORDERED: SODIUM CHLORIDE 0.9% 20 ML VIAL ONE (07:57)
[2018-01-29] MEDS ORDERED: ROPIVACAINE PERI-ARTICULAR INJECTION. P-ARTICULR SCH ×5 (08:30)
[2018-01-29] MEDS ORDERED: TRANEXAMIC ACID INJ 1,290 MG in SODIUM CHLORIDE 0.9% INJ 100 ML IV SCH (08:30)
[2018-01-29] MEDS ORDERED: TRANEXAMIC PERI-ARTICULAR 3,000 MG/NS 100 ML P-ARTICULR SCH ×2 (08:30)
[2018-01-29] MEDS: LEVOTHYROXINE SODIUM 150 MCG TAB PO SCH (09:00)
[2018-01-29] MEDS: GABAPENTIN 300 MG CAP PO SCH ×2 (09:00→20:08)
[2018-01-29] MEDS: METOPROLOL TARTRATE 25 MG TAB PO SCH ×2 (09:00→20:08)
[2018-01-29] MEDS: ATORVASTATIN 20 MG TAB PO SCH (09:00)
[2018-01-29] MEDS ORDERED: NON-FORMULARY DRUG (Losartan-Hydrochlorothiazide 1 TAB) PO SCH (09:00)
[2018-01-29] MEDS: LOSARTAN 50 MG TAB PO SCH (09:00)
[2018-01-29] MEDS: SERTRALINE HCL 50 MG TAB PO SCH (09:00)
[2018-01-29] MEDS: ALLOPURINOL 300 MG TAB PO SCH ×2 (09:00→20:08)
[2018-01-29] MEDS: BUDESONIDE-FORMOTEROL 160/4.5 MCG INHALER INH SCH (09:00)
[2018-01-29] MEDS: MONTELUKAST SODIUM 10 MG TAB PO SCH (09:00)
[2018-01-29] MEDS: HYDROCHLOROTHIAZIDE 12.5 MG CAP PO SCH (09:00)
[2018-01-29] MEDS ORDERED: MIDAZOLAM HCL 2 MG/2 ML VIAL ONE (10:18)
[2018-01-29] MEDS: SODIUM CHLOR 0.9% 1000 ML INJ 1,000 ML IV SCH ×2 (10:27→16:44)
--- NOTE | 2018-01-29 10:38 | MP ---
cc: Jose Angel Muse MD DATE OF OPERATION: PREOPERATIVE DIAGNOSIS: Left knee osteoarthritis. POSTOPERATIVE DIAGNOSIS: Left knee osteoarthritis. PROCEDURE: Left total knee arthroplasty. SURGEON: Jose Angel Muse MD PROPULSION MOTOR AND GENERATOR REPAIRER: GRETA Rome ANESTHESIA: General with femoral nerve block. ESTIMATED BLOOD LOSS: 100 mL TOURNIQUET TIME: 27 minutes at 250 mmHg. COMPLICATIONS: None. IMPLANTS USED: DePuy Attune size 5 posterior stabilized femoral component, size 4 rotating platform tibia baseplate, size 8 mm polyethylene insert, size 35 patella. JUSTIFICATION: This patient is a 67-year-old female with history of severe end-stage osteoarthrosis involving the left knee. She has severe disabling pain with standing, walking, ambulation, weight bear activities, and severe pain at rest. She has failed greater than 3 months of nonoperative conservative treatment to include medication therapy, injections, ambulatory assisted aids, home exercise program, activity modification, weight loss. X-ray of the left knee reveals severe osteoarthritis with [id number] joint space narrowing, subchondral sclerosis, subchondral cyst osteophyte formation with varus deformity and subluxation. The patient was counseled as to the risks, benefits and alternatives to a total knee arthroplasty. The risks were discussed which include, but not limited to anesthesia, bleeding, infection, damage to nerves and blood vessels, pain, stiffness, failure of components, blood clots, pulmonary embolism and even . The patient's pain is severe. She favored the benefits over the risks and she did wish to proceed with surgery. PROCEDURE IN DETAIL: Written consent was obtained. The patient was identified by name and taken to the operating room and placed supine on the operating table. General anesthesia was administered, as well as 2 grams of IV Ancef, 1 gram of IV vancomycin. A well-padded tourniquet was placed on left thigh. The left lower extremity was prepped and draped using isopropyl alcohol, Hibiclens solution and ChloraPrep solution. After timeout was performed, Esmarch bandage was used to exsanguinate the left lower extremity and the tourniquet inflated to 250 mmHg. A longitudinal incision was made over the anterior aspect of the left knee. A medial parapatellar arthrotomy was performed. The patella was everted. Patellar resection guide was used to resect 7 mm of patella. The size 35 mm guide was placed. Three drill holes were placed and a 35 mm trial fit well. Attention was turned to the femur where intramedullary guidewire was placed. The distal femoral guide was set to remove 10 mm of distal femur, 5 degrees off the anatomic valgus axis alignment. Oscillating saw was used to perform the distal femoral cut. Attention was turned to the tibia where an extramedullary tibial guide was set to remove 6 mm off the lowest portion of the medial tibial plateau. The tibial guide was pinned in place and tibial cut was performed. A 5 mm spacer block showed full extension. Attention turned back to the femur where AP sizing block measured size 5. The anterior reference 3-degree external rotation guide was used to pin a size [address]. The anterior, posterior chamfer cuts were performed. The size 5 PCL box guide was pinned in place. The PCL was boxed out with an oscillating saw. The medial and lateral meniscus remnants were removed, as well as bone and soft tissue debris from posterior portion of the knee. A size 4 tibial baseplate was pinned in place. The tibia was drilled and punched. Trial components were evaluated and final components cemented in place. With the current components the leg could achieve full extension 0 degrees and flexion to 140, varus valgus balance appeared appropriate and symmetric and the patella was noted to track centrally. Tourniquet was deflated. Bovie cautery was used for hemostasis. The surgical wound was thoroughly irrigated with sterile saline pulse lavage antibiotic impregnated solution. The arthrotomy incision was closed with #1 Vicryl suture, subcutaneous layer with 2-0 Vicryl sutures. Skin was closed with Dermabond. Sterile dressing applied. The patient tolerated the procedure well with no intraoperative complications noted. Tenzin Leiva physician quality control assistant, certified was present for the entire procedure to include the patient position, the procedure itself. The medical necessity of physician quality control assistant was indicated in this case due to the complexity of the procedure. He assisted with appropriate manipulation of the leg and also traction of muscle, tendon, bone, neurovascular structures. He assisted with preparation of bone and also implantation of prosthetic replacement. MD HARLEY Jett/PAULINA , 09:53 AM , 10:37 AM
[2018-01-29] MEDS ORDERED: DO NOT ADM ANY ANTICOAGULANT DRUGS PRN (10:45)
--- NOTE | 2018-01-29 11:30 | RADRPT ---
EXAM DATE/TIME: 01/29/2018 11:48 [facility] COMPARISON: No previous studies available for comparison. INDICATIONS : Post op left knee surgery. MEDICAL HISTORY : None. SURGICAL HISTORY : None. ENCOUNTER: Initial ACUITY: 1 day PAIN SCORE: 0/10 LOCATION: Left knee FINDINGS: Postsurgical features of left knee arthroplasty. Arthroplasty components are in anatomic alignment. N o significant acute bony fracture. Immediate postsurgical soft tissue features. CONCLUSION: 1. Status post left knee arthroplasty in anatomic alignment without significant acute bony fracture. Fady Aviles MD on January 29, 2018 at 11:27 Board Certified Radiologist. This report was verified electronically.
[2018-01-29] MEDS ORDERED: PROPOFOL 200 MG/20 ML AMP IV ONE (12:00)
[2018-01-29] MEDS ORDERED: ONDANSETRON HCL 4 MG/2 ML VIAL IV ONE (12:00)
[2018-01-29] MEDS ORDERED: DEXAMETHASONE SOD PHOS 4 MG/ML VIAL IV ONE (12:00)
[2018-01-29] MEDS ORDERED: LACTATED RINGER'S 1000 ML INJ 1,000 ML IV ONE (12:00)
[2018-01-29] MEDS ORDERED: PHENYLEPH/NS 1000 MCG/10 ML SYR IV ONE (12:00)
[2018-01-29 12:19] VITALS: BP 130/68; PULSE 83; RESP 16; TEMP 97.3; O2SAT 97
--- NOTE | 2018-01-29 13:05 | HHI.DCPOC ---
Discharge Care Plan Diagnosis: (1) Primary localized osteoarthrosis, lower leg Your Health Problems Are: Difficulty with ADL Goals to Promote Your Health * To prevent worsening of your condition and complications * To maintain your health at the optimal level Directions to Meet Your Goals Take your medications as prescribed Follow your dietary instruction Follow activity as directed Keep your appointments as scheduled Take your immunizations and boosters as scheduled If your symptoms worsen call your PCP, if no PCP go to Urgent Care Center or Emergency Room Smoking is Dangerous to Your Health. Avoid second hand smoke Call the 24-hour hour crisis hotline for domestic abuse at Jose nAgel Leiva January 29, 2018 13:05
--- NOTE | 2018-01-29 13:06 | HHI.FF ---
Face to Face Verification Diagnosis: (1) Primary localized osteoarthrosis, lower leg Physical Therapy Gait training, Safety evaluation, Transfer training, bed to chair Knee: Total knee, Protocol: Left, Full weight bearing Left LE Weight Bearing: WB as tolerated Nursing RN: 3 days/week x 2 weeks Nursing: Dressing changes Dressing Changes: Daily dressing change I have seen patient Marci Love on 01/29/18. My clinical findings support the need for the requested home health care services because: Limited ability to care for self High risk of falls I certify that my clinical findings support that this patient is homebound because: Post-op weakness Unsteady gait/balance Jose Angel Leiva January 29, 2018 13:06
[2018-01-29] MEDS ORDERED: CPMMACHINE (13:07)
[2018-01-29 16:00] VITALS: BP 116/57; PULSE 77; RESP 16; TEMP 97.2; O2SAT 96
[2018-01-29] MEDS: ACETAMINOPHEN/HYDROcodone 325 MG/7.5 MG TAB PO PRN (18:20)
[2018-01-29 20:00] VITALS: BP 121/60; PULSE 84; RESP 18; TEMP 97.6
[2018-01-29 21:21] VITALS: O2SAT 98
[2018-01-30] VITALS (7 sets, daily range): BP systolic 117–160; BP diastolic 56–70; PULSE 60–76; RESP 17–18; TEMP 97.2–98; O2SAT 90–98
[2018-01-30] MEDS: SODIUM CHLOR 0.9% 1000 ML INJ 1,000 ML IV SCH ×3 (02:44→22:44)
[2018-01-30] MEDS: ACETAMINOPHEN/HYDROcodone 325 MG/7.5 MG TAB PO PRN ×4 (05:12→17:18)
[2018-01-30 05:55] LABS: HEMATOCRIT 31.9 % (35.0-46.0); HEMOGLOBIN 10.6 GM/DL (11.6-15.3); MEAN CELL VOLUME 86.1 FL (80.0-100.0); MEAN CORPUSCULAR HEMOGLOBIN 28.5 PG (27.0-34.0); MEAN CORPUSCULAR HGB CONC 33.2 % (32.0-36.0); MEAN PLATELET VOLUME 8.5 FL (7.0-11.0); PLATELET COUNT 248 TH/MM3 (150-450); RED BLOOD COUNT 3.71 MIL/MM3 (4.00-5.30); RED CELL DISTRIBUTION WIDTH 13.6 % (11.6-17.2); WHITE BLOOD COUNT 16.5 TH/MM3 (4.0-11.0)
[2018-01-30] MEDS: LEVOTHYROXINE SODIUM 150 MCG TAB PO SCH (06:04)
[2018-01-30 06:31] LABS: BICARBONATE 29.9 MEQ/L (21.0-32.0); CALCIUM 8.6 MG/DL (8.5-10.1); CREATININE 0.65 MG/DL (0.50-1.00)
--- NOTE | 2018-01-30 08:07 | PD.ORT.PN ---
Subjective Post Op Day #: 1 Subjective Remarks pain tolerable. Objective Vitals Vital Signs Date Time Temp Pulse Resp B/P (MAP) Pulse Ox O2 Delivery O2 Flow Rate FiO2 01/30/18 07:19 Room Air 01/30/18 03:50 97.4 76 18 124/62 (82) 94 01/30/18 00:23 97.2 74 18 124/56 (78) 90 01/29/18 21:21 98 01/29/18 20:00 97.6 84 18 121/60 (80) 01/29/18 16:00 97.2 77 16 116/57 (76) 96 01/29/18 12:19 Nasal Cannula 3.00 01/29/18 12:19 97.3 83 16 130/68 (88) 97 01/29/18 12:00 97.4 82 15 122/63 (82) 95 Nasal Cannula 3 01/29/18 11:45 81 15 123/62 (82) 97 Nasal Cannula 3 01/29/18 11:15 84 17 118/55 (76) 92 Nasal Cannula 3 01/29/18 11:00 85 20 132/67 (88) 95 Nasal Cannula 3 01/29/18 10:45 82 20 123/64 (83) 95 Nasal Cannula 3 01/29/18 10:30 85 21 116/62 (80) 93 Nasal Cannula 2 01/29/18 10:15 89 24 115/61 (79) 94 Nasal Cannula 2 01/29/18 10:11 97.4 92 21 110/56 (74) 96 Nasal Cannula 2 I/O 01/29/18 01/29/18 01/29/18 01/30/18 01/30/18 01/30/18 07:00 15:00 23:00 07:00 15:00 23:00 Intake Total 2027 ml 480 ml Output Total 100 ml Balance 1927 ml 480 ml Intake Oral 680 ml 480 ml IV Total 147 ml Other 1200 ml Output Estimated Blood Loss 100 ml # Voids 2 4 # Bowel Movements 0 0 Result Diagram: 01/30/18 0455 01/30/18 045 Objective Remarks in bed, nad dressing c/d/i neg homans nvi Assessment & Plan Ortho Post Op Day #: 1 Problem List: Assessment and Plan s/p L TKA wbat ok to maintain dressing unless saturated lovenox, d/c on asa 81 d/c planning home with c and pt - tues or wed depending on PT f/up dr. norris 2 weeks Jose Angel Leiva January 30, 2018 08:07
[2018-01-30] MEDS: MONTELUKAST SODIUM 10 MG TAB PO SCH (09:14)
[2018-01-30] MEDS: GABAPENTIN 300 MG CAP PO SCH ×2 (09:14→20:43)
[2018-01-30] MEDS: HYDROCHLOROTHIAZIDE 12.5 MG CAP PO SCH (09:14)
[2018-01-30] MEDS: LOSARTAN 50 MG TAB PO SCH (09:14)
[2018-01-30] MEDS: ENOXAPARIN SODIUM 40 MG/0.4 ML SYRINGE SQ SCH (09:14)
[2018-01-30] MEDS: METOPROLOL TARTRATE 25 MG TAB PO SCH ×2 (09:14→20:43)
[2018-01-30] MEDS: ATORVASTATIN 20 MG TAB PO SCH (09:14)
[2018-01-30] MEDS: ALLOPURINOL 300 MG TAB PO SCH ×2 (09:15→20:43)
[2018-01-30] MEDS: SERTRALINE HCL 50 MG TAB PO SCH (09:15)
--- NOTE | 2018-01-30 09:49 | PD.CONS ---
HPI Service [facility] Consult Requested By Micha Reason for Consult Medical management Primary Care Physician Jessy Bhatt MD Diagnoses: History of Present Illness 67 y/o female with a history of COPD, HLD, gout, hypothyroid, depression and neuropathy was an elected total knee replacement with Dr. Muse. [facility] was consulted for medical management. Patient states she is doing well. Denies any current knee pain at this time. She is doing well with her CPM machine. Denies any chest pain, sob, fever or chills. Review of Systems Except as stated in HPI: all other systems reviewed are Neg Past Family Social History Allergies: Coded Allergies: chocolate flavor (Verified Allergy, Severe, WHEEZING, THROAT CLOSES, ) peanut (Verified Allergy, Unknown, BODY FEELS IF SHE IS BEING SQUEEZED ALL OVER, WHEEZING, 01/29/18) Past Medical History COPD HLD gout hypothyroid depression neuropathy Past Surgical History Big toe joint replacement Cervicale fusion x 2 Bladder prolapse repair Appendectomy Tonsillectomy Hysterectomy Reported Medications Reported Meds & Active Scripts Active Aspirin Low Dose (Aspirin) 81 Mg Chew 81 Mg CHEW BID 30 Days [place] (Hydrocodone-Acetaminophen) 7.5-325 mg Tab 1-2 Tab PO Q6H PRN Reported Proair Hfa 8.5 GM Inh (Albuterol Sulfate) 90 Mcg/Act Aer 1-2 Puff INH Q6H PRN 108 mcg/actuation Advair Diskus Inh (Fluticasone-Salmeterol Inh) 500-50 Mcg/Blist Aer 1 Puff INH BID Rinse mouth after use. Meloxicam 15 Mg Tab 15 Mg PO DAILY Flexeril (Cyclobenzaprine HCl) 10 Mg Tab 10 Mg PO DIRECTED Losartan-Hydrochlorothiazide 50-12.5 Mg Tab 1 Tab PO DAILY Atorvastatin (Atorvastatin Calcium) 20 Mg Tab 20 Mg PO 4 TIMES WEEKLY Metoprolol Tartrate 25 Mg Tab 25 Mg PO BID Allopurinol 300 Mg Tab 300 Mg PO BID Singulair (Montelukast Sodium) 10 Mg Tab 10 Mg PO DAILY Zoloft (Sertraline HCl) 100 Mg Tab 150 Mg PO DAILY Gabapentin 300 Mg Cap 300 Mg PO BID Levothyroxine (Levothyroxine Sodium) 150 Mcg Tab 150 Mcg PO DAILY Active Ordered Medications Current Medications Medications (Trade) Dose Ordered Sig/Kamilah Route Start Time Stop Time Status Last Admin Lactated Ringer's 1,000 ml @ 30 mls/hr Q24H PRN IV 01/29/18 06:30 02/01/18 06:29 01/29/18 07:27 Sodium Chloride 500 ml @ 30 mls/hr [id number] PRN IV 01/29/18 06:30 02/01/18 06:29 (Lopressor) 25 mg CAKE WRAPPER PRN PO 01/29/18 06:30 02/01/18 06:29 (Betadine 5% Antisepsis Kit) 1 applic CAKE WRAPPER PRN EACH NARE 01/29/18 06:30 02/01/18 06:29 01/29/18 07:30 (Chlorhexidine 2% Cloth) 3 pack CAKE WRAPPER PRN TOPICAL 01/29/18 06:30 02/01/18 06:29 01/29/18 07:00 (NovoLIN R INJ) See Protocol Table ... CAKE WRAPPER PRN SQ 01/29/18 06:30 02/01/18 06:29 (Betadine 7.5% Scrub) 1 applic ONCE TOPICAL 01/29/18 06:30 02/01/18 06:29 (Hibiclens 4% Top Soln) 1 applic ONCE TOPICAL 01/29/18 06:30 02/01/18 06:29 01/29/18 07:30 Cefazolin Sodium 1000 mg/Sodium Chloride 100 ml @ 200 mls/hr CAKE WRAPPER IV 01/29/18 06:30 02/01/18 06:29 (Zyloprim) 300 mg BID PO 01/29/18 09:00 01/30/18 09:15 (Lipitor) 20 mg DAILY PO 01/29/18 09:00 01/30/18 09:14 (Neurontin) 300 mg BID PO 01/29/18 09:00 01/30/18 09:14 (Synthroid) 150 mcg DAILY PO 01/29/18 09:00 01/30/18 06:04 (Lopressor) 25 mg BID PO 01/29/18 09:00 01/30/18 09:14 (Singulair) 10 mg DAILY PO 01/29/18 09:00 01/30/18 09:14 (Zoloft) 150 mg DAILY PO 01/29/18 09:00 01/30/18 09:15 (Symbicort 160-4.5 Mcg Inh) 2 puff BID INH 01/29/18 09:00 Sodium Chloride 1,000 ml @ 100 mls/hr Q10H IV 01/29/18 06:44 01/29/18 10:27 (Lovenox Inj) 40 mg Q24H SQ 01/30/18 09:00 02/08/18 09:01 01/30/18 09:14 (Morphine Inj) 3 mg Q3H PRN IV PUSH 01/29/18 06:45 01/29/18 12:46 ([place] 7.5-325 Mg) 1 tab Q4H PRN PO 01/29/18 06:45 01/30/18 05:12 ([place] 7.5-325 Mg) 2 tab Q4H PRN PO 01/29/18 06:45 01/30/18 09:15 (Theragran M Tab) 1 tab BID PO 01/30/18 21:00 03/31/18 20:59 (Zofran Odt) 4 mg Q6H PRN PO 01/29/18 06:45 (Colace) 100 mg BID PO 01/30/18 21:00 (Ambien) 5 mg HS PRN PO 01/29/18 06:45 (Benadryl Inj) 25 mg Q6H PRN IV PUSH 01/29/18 06:45 (Cozaar) 50 mg DAILY PO 01/29/18 09:00 01/30/18 09:14 (Microzide) 12.5 mg DAILY PO 01/29/18 09:00 01/30/18 09:14 ([facility]) ALL NURSING DEPARTME... UNSCH PRN .XX 01/29/18 10:45 01/30/18 10:44 Family History Patient denies any family history, no heart disease or cancer Social History Patient denies any tobacco, alcohol or illicit drug use Physical Exam Vital Signs Vital Signs Date Time Temp Pulse Resp B/P (MAP) Pulse Ox O2 Delivery O2 Flow Rate FiO2 01/30/18 08:00 98.0 60 17 141/65 (90) 93 01/30/18 07:19 Room Air 01/30/18 03:50 97.4 76 18 124/62 (82) 94 01/30/18 00:23 97.2 74 18 124/56 (78) 90 5/14/18 21:21 98 01/29/18 20:00 97.6 84 18 121/60 (80) 01/29/18 16:00 97.2 77 16 116/57 (76) 96 01/29/18 12:19 Nasal Cannula 3.00 01/29/18 12:19 97.3 83 16 130/68 (88) 97 01/29/18 12:00 97.4 82 15 122/63 (82) 95 Nasal Cannula 3 01/29/18 11:45 81 15 123/62 (82) 97 Nasal Cannula 3 01/29/18 11:15 84 17 118/55 (76) 92 Nasal Cannula 3 01/29/18 11:00 85 20 132/67 (88) 95 Nasal Cannula 3 01/29/18 10:45 82 20 123/64 (83) 95 Nasal Cannula 3 01/29/18 10:30 85 21 116/62 (80) 93 Nasal Cannula 2 01/29/18 10:15 89 24 115/61 (79) 94 Nasal Cannula 2 01/29/18 10:11 97.4 92 21 110/56 (74) 96 Nasal Cannula 2 Physical Exam GENERAL: This is a well-nourished, well-developed patient, in no apparent distress. SKIN: No rashes, ecchymoses or lesions. Cool and dry. knee dressing dry and intact HEAD: Atraumatic. Normocephalic. EYES: Pupils equal round and reactive. CARDIOVASCULAR: Regular rate and rhythm without murmurs, gallops, or rubs. RESPIRATORY: Clear to auscultation. Breath sounds equal bilaterally. No wheezes , rales, or rhonchi. GASTROINTESTINAL: Abdomen soft, non-tender, nondistended. No hepato-splenomegaly , or palpable masses. No guarding. MUSCULOSKELETAL: Left knee minimal edema and tenderness. No calf tenderness. NEUROLOGICAL: Awake and alert. Motor and sensory grossly within normal limits. Normal speech. Laboratory Laboratory Tests Test 01/30/18 04:55 White Blood Count 16.5 Red Blood Count 3.71 Hemoglobin 10.6 Hematocrit 31.9 Mean Corpuscular Volume 86.1 Mean Corpuscular Hemoglobin 28.5 Mean Corpuscular Hemoglobin Concent 33.2 Red Cell Distribution Width 13.6 Platelet Count 248 Mean Platelet Volume 8.5 Blood Urea Nitrogen 19 Creatinine 0.65 Random Glucose 143 Calcium Level 8.6 Sodium Level 144 Potassium Level 3.9 Chloride Level 106 Carbon Dioxide Level 29.9 Anion Gap 8 Estimat Glomerular Filtration Rate 91 Result Diagram: 01/30/18 0455 01/30/18 0455 Imaging Last Impressions Knee X-Ray 01/29/18 0644 Signed Impressions: Service Date/Time: Monday, January 29, 2018 11:48 - CONCLUSION: 1. Status post left knee arthroplasty in anatomic alignment without significant acute bony fracture. Fady Aviles MD Assessment and Plan Problem List: (1) COPD (chronic obstructive pulmonary disease) ICD Code: J44.9 - Chronic obstructive pulmonary disease, unspecified Status: Chronic (2) HLD (hyperlipidemia) ICD Code: E78.5 - Hyperlipidemia, unspecified (3) Depression ICD Code: F32.9 - Major depressive disorder, single episode, unspecified (4) Gout ICD Code: M10.9 - Gout, unspecified (5) Total knee replacement status ICD Code: Z96.659 - Presence of unspecified artificial knee joint Assessment and Plan 67 y/o female with a history of COPD, HLD, gout, hypothyroid, depression and neuropathy was an elected total knee replacement with Dr. Muse. [facility] was consulted for medical management. Total knee replacement, left -Ortho following -Lovenox per ortho -WBAT per ortho COPD, chronic, not in exacerbation -Cont home symbicort -Incentive spirometer Gout, chronic Hypothyroid, chronic Depression, chronic -Resume home medications, cont to monitor DVT prophylaxis: Lovenox per ortho Discussed Condition With Tomorrow per ortho Denisse Zayas January 30, 2018 09:49
[2018-01-30] MEDS: BUDESONIDE-FORMOTEROL 160/4.5 MCG INHALER INH SCH ×2 (12:46→20:45)
[2018-01-30] MEDS: MULTIVITAMINS/MINERALS THERAPEUTIC TAB PO SCH (20:43)
[2018-01-30] MEDS: DOCUSATE SODIUM 100 MG CAP PO SCH (20:43)
[2018-01-31] MEDS: ACETAMINOPHEN/HYDROcodone 325 MG/7.5 MG TAB PO PRN ×3 (01:31→10:26)
[2018-01-31 06:53] LABS: HEMATOCRIT 31.1 % (35.0-46.0); HEMOGLOBIN 10.3 GM/DL (11.6-15.3); MEAN CELL VOLUME 85.7 FL (80.0-100.0); MEAN CORPUSCULAR HEMOGLOBIN 28.4 PG (27.0-34.0); MEAN CORPUSCULAR HGB CONC 33.1 % (32.0-36.0); MEAN PLATELET VOLUME 7.9 FL (7.0-11.0); PLATELET COUNT 236 TH/MM3 (150-450); RED BLOOD COUNT 3.63 MIL/MM3 (4.00-5.30); RED CELL DISTRIBUTION WIDTH 13.6 % (11.6-17.2); WHITE BLOOD COUNT 12.4 TH/MM3 (4.0-11.0)
[2018-01-31 07:27] LABS: BICARBONATE 31.2 MEQ/L (21.0-32.0); CALCIUM 8.6 MG/DL (8.5-10.1); CREATININE 0.59 MG/DL (0.50-1.00)
[2018-01-31 08:00] VITALS: BP 170/77; PULSE 91; RESP 17; TEMP 97.6; O2SAT 94
[2018-01-31] MEDS: ENOXAPARIN SODIUM 40 MG/0.4 ML SYRINGE SQ SCH (08:37)
[2018-01-31] MEDS: DOCUSATE SODIUM 100 MG CAP PO SCH (08:37)
[2018-01-31] MEDS: ALLOPURINOL 300 MG TAB PO SCH (08:37)
[2018-01-31] MEDS: LOSARTAN 50 MG TAB PO SCH (08:37)
[2018-01-31] MEDS: HYDROCHLOROTHIAZIDE 12.5 MG CAP PO SCH (08:37)
[2018-01-31] MEDS: ATORVASTATIN 20 MG TAB PO SCH (08:38)
[2018-01-31] MEDS: SERTRALINE HCL 50 MG TAB PO SCH (08:38)
[2018-01-31] MEDS: LEVOTHYROXINE SODIUM 150 MCG TAB PO SCH (08:38)
[2018-01-31] MEDS: GABAPENTIN 300 MG CAP PO SCH (08:38)
[2018-01-31] MEDS: BUDESONIDE-FORMOTEROL 160/4.5 MCG INHALER INH SCH (08:38)
[2018-01-31] MEDS: METOPROLOL TARTRATE 25 MG TAB PO SCH (08:38)
[2018-01-31] MEDS: MONTELUKAST SODIUM 10 MG TAB PO SCH (08:38)
[2018-01-31] MEDS: MULTIVITAMINS/MINERALS THERAPEUTIC TAB PO SCH (08:39)
[2018-01-31] MEDS: SODIUM CHLOR 0.9% 1000 ML INJ 1,000 ML IV SCH (08:44)
--- NOTE | 2018-01-31 08:44 | HHI.PR ---
Subjective Remarks Follow-up leukocytosis. The patient states that she does not feel well today. She is not sure if she can go home today. Denies chest pain or dyspnea. Has had a cough productive of minimal sputum. She has had more pain in her knee this morning. Objective Vitals Vital Signs Date Time Temp Pulse Resp B/P (MAP) Pulse Ox O2 Delivery O2 Flow Rate FiO2 01/31/18 08:00 97.6 91 17 170/77 (108) 94 01/31/18 07:30 Room Air 01/30/18 23:44 97.9 73 18 123/58 (79) 98 01/30/18 20:50 Room Air 01/30/18 19:23 97.6 62 18 117/61 (79) 95 01/30/18 16:00 97.3 63 17 134/63 (86) 96 01/30/18 12:00 97.3 65 17 160/70 (100) 93 I/O 01/30/18 01/30/18 01/30/18 01/31/18 01/31/18 01/31/18 06:59 14:59 22:59 06:59 14:59 22:59 Intake Total 480 ml 500 ml 360 ml Balance 480 ml 500 ml 360 ml Intake Oral 480 ml 500 ml 360 ml # Voids 4 5 5 # Bowel Movements 0 1 Result Diagram: 01/31/18 0632 01/31/18 0632 Imaging Last Impressions Knee X-Ray 01/29/18 0644 Signed Impressions: Service Date/Time: Monday, January 29, 2018 11:48 - CONCLUSION: 1. Status post left knee arthroplasty in anatomic alignment without significant acute bony fracture. Fady Aviles MD Objective Remarks General: No acute distress. Heart: Regular rate and rhythm. No murmur. Lungs: Clear to auscultation bilaterally. No wheezes, rales, or rhonchi. Breathing is nonlabored. Abdomen: Soft, nontender, nondistended. Extremities: No lower extremity edema. Left knee wound bandaged. RYAN hose. Psych: Alert and oriented. Neuro: Normal speech. No focal deficits noted. Procedures Left total knee arthroplasty Urinary Catheter: No Vascular Central Line Catheter: No A/P Problem List: (1) COPD (chronic obstructive pulmonary disease) ICD Code: J44.9 - Chronic obstructive pulmonary disease, unspecified Status: Chronic (2) HLD (hyperlipidemia) ICD Code: E78.5 - Hyperlipidemia, unspecified (3) Depression ICD Code: F32.9 - Major depressive disorder, single episode, unspecified (4) Gout ICD Code: M10.9 - Gout, unspecified (5) Total knee replacement status ICD Code: Z96.659 - Presence of unspecified artificial knee joint Assessment and Plan 1. Osteoarthritis: Status post left total knee arthroplasty. Management per orthopedic surgery. Weightbearing as tolerated. Continue physical therapy, bowel regimen, pain control. 2. COPD: Not in acute exacerbation. Continue Symbicort. Incentive spirometry. Oxygen if needed. 3. Hypothyroidism: Continue Synthroid. 4. Depression: Continue home medications. 5. Gout: Continue allopurinol. 6. DVT prophylaxis: Lovenox. 7. Leukocytosis: Likely stress reaction. WBCs improving. Patient does have a mildly productive cough, but lungs are clear on exam and she is not requiring supplemental oxygen. She is afebrile. Discharge Planning Discharge home with home health care today per orthopedic surgery. Favian Valle MD January 31, 2018 08:44
[2018-01-31 10:32] VITALS: O2SAT 95
[2018-01-31 12:00] VITALS: BP 148/78; PULSE 85; RESP 17; TEMP 97.5; O2SAT 94
--- NOTE | 2018-01-31 13:01 | PD.ORT.PN ---
Subjective Post Op Day #: 2 Subjective Remarks pain tolerable. feels tired. Objective Vitals Vital Signs Date Time Temp Pulse Resp B/P (MAP) Pulse Ox O2 Delivery O2 Flow Rate FiO2 01/31/18 10:32 95 01/31/18 08:00 97.6 91 17 170/77 (108) 94 01/31/18 07:30 Room Air 01/30/18 23:44 97.9 73 18 123/58 (79) 98 01/30/18 20:50 Room Air 01/30/18 19:23 97.6 62 18 117/61 (79) 95 01/30/18 16:00 97.3 63 17 134/63 (86) 96 I/O 01/30/18 01/30/18 01/30/18 01/31/18 01/31/18 01/31/18 07:00 15:00 23:00 07:00 15:00 23:00 Intake Total 480 ml 500 ml 360 ml Balance 480 ml 500 ml 360 ml Intake Oral 480 ml 500 ml 360 ml # Voids 4 5 5 # Bowel Movements 0 1 Result Diagram: 01/31/18 0632 01/31/18 0632 Objective Remarks in bed, nad dressing c/d/i neg homans nvi Assessment & Plan Ortho Post Op Day #: 2 Problem List: Assessment and Plan s/p L TKA wbat ok to maintain dressing unless saturated lovenox, d/c on asa 81 d/c planning home with [facility] and pt - cleared today patient states she has family that are going to help her as she lives alone. declines snf. f/up dr. norris 2 weeks Jose Angel Leiva January 31, 2018 13:01
== END 2018-01-31 13:36 | disposition home health service (06) | DRG 470 ==
LOC: HSDI 05:50 → EDSTATUS 08:30 → N06A 12:19
PROVIDERS: ADMIT Orthopaedic Surgery Sports Medicine; ATTEND Orthopaedic Surgery Sports Medicine
PROC: 3E0T3BZ Introduction of Anesthetic Agent into Peripheral Nerves and Plexi, Percutaneous Approach (ICD-10-PCS; 2018-01-29)
PROC: 0SRD0J9 Replacement of Left Knee Joint with Synthetic Substitute, Cemented, Open Approach (ICD-10-PCS; principal; 2018-01-29 08:11)
DX: M17.12 Unilateral primary osteoarthritis, left knee (principal); J44.9 Chronic obstructive pulmonary disease, unspecified; G62.9 Polyneuropathy, unspecified; M25.762 Osteophyte, left knee; M21.162 Varus deformity, not elsewhere classified, left knee; I10 Essential (primary) hypertension; M10.9 Gout, unspecified; E78.5 Hyperlipidemia, unspecified; E03.9 Hypothyroidism, unspecified; D72.829 Elevated white blood cell count, unspecified; F32.9 Major depressive disorder, single episode, unspecified; Z87.891 Personal history of nicotine dependence; Z91.010 Allergy to peanuts; Z98.1 Arthrodesis status
CPT/HCPCS: 73560; 80048; 85027; 86850; 86900; 86901; 94150; C1776; C9290; J0131; J0690; J0735; J1100; J1580; J1650; J1885; J2250; J2270; J2370; J2405; J2795; J3370; J7030; J7120